=== PATIENT | female | born 2005 | race Caucasian/White ===

== ENCOUNTER 2025-03-24 09:47 | Outpatient (AMB) | payer MEDICAID, SELFPAY ==
--- NOTE | 2025-03-24 09:58 | OBCLNT_ITS ---
Vital Signs 03/24/25 10:40 Height 1.6 cm Height Method Stated Weight 59.194 kg Weight Measurement Method Standing Scale BMI 975924.1 BP 116/75 Blood Pressure Source Automatic Cuff Blood Pressure Location Left Upper Arm Position Sitting Respiration 18 Pulse 88 Pulse Source Monitor Temp 97.2 F Temp Source Oral Pulse Oximetry (%) 98 Oxygen Delivery Method Room Air Allergies/Home Meds Allergies & Medications Allergies No Known Allergies Allergy (Verified 03/24/25 10:42) Medication Reconciliation ferrous sulfate 325 mg (65 mg iron) tablet 325 mg PO BID #60 tabs 03/24/25 [Rx] Intake Visit Data Collection New Patient or Established: New Patient (never been to [facility]) Reason for Visit:: OBI FROM [place] NO RECORDS Seen by Clinical Staff ONLY (RN/MA): No Waiter/Waitress Tavern Required: No Do You Feel Safe at Home: Yes Authorities Contacted: N/A PCP or OBGYN visit in last 3 months: Yes Date of Last PCP or OBGYN visit: 03/24/25 Hx Now: Yes Are you currently on any form of Control: No Last menstrual period: 09/01/24 Pain Present Currently: No Pain Scale Used: Campos-Quiles/Numerical Pain scale:: 0 Smoking Status Smoking Status: Never smoker Questionnaires Covid-19 Vaccine Questionnaire Has patient been vacinated for Covid-19 Have you been vacinated for Covid-19: No PHQ-9 PHQ-2 Over the last 2 weeks, how often have you been bothered by any of the following problems? 1. Little interest or pleasure in doing things: not at all 2. Feeling down, depressed, or hopeless: not at all Total score: 0 PHQ-9 3. Trouble falling or staying asleep, or sleeping too much: Not at all 4. Feeling tired or having little energy: Not at all 5. Poor appetite or overeating: Not at all 6. Feeling bad about yourself - or that you are a failure or have let yourself or your family down: Not at all 7. Trouble concentrating on things, such as reading the newspaper or watching television: Not at all 8. Moving or speaking so slowly that other people could have noticed? - Or the opposite - being so fidgety or restless that you have been moving around a lot more than usual: not at all 9. Thoughts that you would be better off or of hurting yourself in some way: Not at all Total score: 0 If you checked off any problems, how difficult have these problems made it for you to do your work, take care of things at home, or get along with other people?: not difficult at all Source: Developed by Drs. Francisco Ignacio, Cheryl Winston, Blade Menon and colleagues, with an educational ximena from [employer]. Depression screen completed yes Social History Living Situation History Marital Status: Lives With: Family Housing: House Tobacco History Smoking Status: Never smoker Second Hand Smoke Exposure: No Alcohol History Alcohol Intake: Never Domestic Abuse History Do You Feel Safe at Home: Yes History of Present Illness HPI Narrative 19 yo for OBI. LMP 09/01/24. EDC: 06/09/25. sure date. Patient and father the baby are happy about the . Patient states reports that she has not had any problems so far with the . She had a couple visits in the [facility]. And she had 1 visit in [place]. Denies social habits. Denies surgery. Denies chronic illness. Patient had positive NuSwab for BV with this that was untreated. Her 1 hour was normal. TSH normal. Hepatitis C, hepatitis B, and HIV were all negative. She was a little bit anemic with a hematocrit of 34. And hemoglobin of 11. Her platelets were normal drug screen negative. Patient is B+, antibody screen negative, RPR nonreactive, rubella immune, and GC and Chlamydia were negative. Patient also had a cystic fibrosis screen that was done and that was negative as well. Reports movement. Denies leaking or bleeding. OB Initial Visit OB Flowsheet OB Flowsheet Initial Weight: Not Recorded Date -?-?-?-?-?-?-?-?-?-?-?-?- EGA Weight BP Alb Glu CTX Pres Fundal ht FHR Mov Dilation Station Effacement Hx Notes Visit Note 03/24/25 -?-?-?-?-?-?-?-?-?-?-?-?- 29w 1d 59.194 kg 116/75 absent unknown 29 145 active 19-year-old 1 para 0 for OBI. Patient had a couple visits in the [facility] and then wanted neck cycle. So she comes with labs today reports movement. Denies leaking, bleeding or contractions. Her last period September 01, 2024 and this gives due date June 09, 2025. Patient had NuSwab and the results positive for BV that was untreated and her hematocrit was 34. Schedule maternal- medicine ultrasound with Dr. Lind. I gave her prescription for iron to take twice a day. Flagyl 500 p.o. twice daily x 7.. And we gave a lab slip to do NIPT and spinal muscular atrophy. Discussed labor precautions and return in 3 weeks for OB check and Tdap Review of Systems Review of Systems Systems Reviewed: All systems reviewed, normal except as documented Exam General Limitations: no limitations General Appearance: alert, in no apparent distress, comfortable, cooperative, healthy appearing, well developed and well groomed Head Head exam: atraumatic, normocephalic and normal inspection ENT ENT exam: Present normal exam, normal oropharynx and mucous membranes moist Neck Neck exam: Present normal inspection, full ROM and trachea midline Chest Chest inspection: Present normal inspection and symmetric chest wall rise Resp Respiratory exam: Present normal lung sounds bilaterally Card Cardiovascular exam: Present regular rate, normal rhythm and normal heart sounds Abdominal Abdominal exam: Present soft and normal bowel sounds Psych Psychiatric exam: Present normal affect and normal mood Office Procedures OBC Clinic LOC & Office Proc's Nursing/Assessment Patient Status: Initial/New Patient OB Clinic Nursing Assessment: Medication Reconciliation, Update PMH in EMR and Vital Signs OB Clinic Coordination of Care: Education Complex Pt/Fam, Consent,records obtained, informed consent, Lab and Imaging orders, Results/Orders obtained and Staff clarify orders Special Needs: Heart tones New Patient Charge New Patient Point Assignment: [id number] New Patient Point Charge: LEADITE MAN Level 3 ([id number]) Assessment & Plan Diagnosis / Problem List (1) Encounter for supervision of high risk in third trimester, antepartum: Status: Acute Plan Flagyl 500 p.o. twice daily x 7. Start iron twice a day. Increase iron foods and increase fluids. Schedule ultrasound with Dr. Lind for routine of medicine. And NIPT and spinal muscular atrophy screen today. Return in 3 weeks for OB check and Tdap Additional Plan Follow Up: 3 Weeks (obc)
[2025-03-24 10:40] VITALS: BP 116/75; PULSE 88; RESP 18; TEMP 36.2; O2SAT 98; BMI 231145.1
== END 2025-03-24 11:14 | disposition home or self-care (01) ==
LOC: HODSOBC 09:47
PROVIDERS: Supervising Provider Advanced Practice Midwife; Visit Provider Advanced Practice Midwife
DX: O09.893 Supervision of other high risk pregnancies, third trimester (principal); O23.593 Infection of other part of genital tract in pregnancy, third trimester; N76.0 Acute vaginitis; B96.89 Other specified bacterial agents as the cause of diseases classified elsewhere; Z3A.29 29 weeks gestation of pregnancy; Z36.89 Encounter for other specified antenatal screening
CPT/HCPCS: 99203; G0463

== ENCOUNTER 2025-04-22 15:15 | Outpatient (AMB) | payer MEDICAID, SELFPAY ==
[2025-04-22 15:20] VITALS: BP 111/72; PULSE 83; RESP 18; TEMP 36.8; O2SAT 98; BMI 24.2
--- NOTE | 2025-04-22 15:20 | OBCLNT_ITS ---
Vital Signs 04/22/25 15:20 Height 1.6 m Height Method Stated Weight 61.915 kg Weight Measurement Method Standing Scale BMI 24.2 BP 111/72 Blood Pressure Source Automatic Cuff Blood Pressure Location Right Upper Arm Position Sitting Respiration 18 Pulse 83 Pulse Source Monitor Temp 98.2 F Temp Source Temporal Artery Scan Pulse Oximetry (%) 98 Oxygen Delivery Method Room Air Allergies/Home Meds Allergies & Medications Allergies No Known Allergies Allergy (Verified 04/22/25 15:21) Medication Reconciliation ferrous sulfate 325 mg (65 mg iron) tablet 325 mg PO BID #60 tabs 03/24/25 [Rx Confirmed 04/22/25] Intake Visit Data Collection New Patient or Established: Established Patient (seen at [facility] within 3 years) Reason for Visit:: OBC Seen by Clinical Staff ONLY (RN/MA): No Special Client Bus Driver Required: No Do You Feel Safe at Home: Yes Authorities Contacted: N/A PCP or OBGYN visit in last 3 months: Yes Date of Last PCP or OBGYN visit: 03/24/25 Hx Now: Yes Are you currently on any form of Control: No Pain Present Currently: No Pain Scale Used: Campos-Quiles/Numerical Pain scale:: 0 Smoking Status Smoking Status: Never smoker Immunizations Flu Vaccine in the Last 12 Months: Yes Flu Vaccine Exclusion Criteria: Already Received Questionnaires Covid-19 Vaccine Questionnaire Has patient been vacinated for Covid-19 Have you been vacinated for Covid-19: No PHQ-9 PHQ-2 Over the last 2 weeks, how often have you been bothered by any of the following problems? 1. Little interest or pleasure in doing things: not at all 2. Feeling down, depressed, or hopeless: not at all Total score: 0 PHQ-9 3. Trouble falling or staying asleep, or sleeping too much: Not at all 4. Feeling tired or having little energy: Not at all 5. Poor appetite or overeating: Not at all 6. Feeling bad about yourself - or that you are a failure or have let yourself or your family down: Not at all 7. Trouble concentrating on things, such as reading the newspaper or watching television: Not at all 8. Moving or speaking so slowly that other people could have noticed? - Or the opposite - being so fidgety or restless that you have been moving around a lot more than usual: not at all 9. Thoughts that you would be better off or of hurting yourself in some wa y: Not at all Total score: 0 If you checked off any problems, how difficult have these problems made it for you to do your work, take care of things at home, or get along with other people?: not difficult at all Source: Developed by Drs. Francisco Ignacio, Cheryl Winston, Blade Menon and colleagues, with an educational ximena from [employer]. Depression screen completed yes Social History Living Situation History Marital Status: Lives With: Family Housing: House Tobacco History Smoking Status: Never smoker Second Hand Smoke Exposure: No Alcohol History Alcohol Intake: Never Domestic Abuse History Do You Feel Safe at Home: Yes Care OB Visit Log OB Flowsheet Initial Weight: Not Recorded Date -?-?-?-?-?-?-?-?-?-?-?-?- EGA Weight BP Alb Glu CTX Pres Fundal ht FHR Mov Dilation Station Effacement Hx Notes Visit Note 03/24/25 -?-?-?-?-?-?-?-?-?-?-?-?- 29w 1d 59.194 kg 116/75 absent unknown 29 145 active 19-year-old 1 para 0 for OBI. Patient had a couple visits in the [facility] and then wanted neck cycle. So she comes with labs today reports movement. Denies leaking, bleeding or contractions. Her last period September 01, 2024 and this gives due date June 09, 2025. Patient had NuSwab and the results positive for BV that was untreated and her hematocrit was 34. Schedule maternal- medicine ultrasound with Dr. Lind. I gave her prescription for iron to take twice a day. Flagyl 500 p.o. twice daily x 7.. And we gave a lab slip to do NIPT and spinal muscular atrophy. Discussed labor precautions and return in 3 weeks for OB check and Tdap 04/22/25 -?-?-?-?-?-?-?-?-?-?-?-?- 33w 2d 61.915 kg 111/72 absent cephalic 32 145 active Reports movement. Denies leaking bleeding, contractions. No OB complaints Discussed labor precautions. Discussed kick count twice a day. Discussed dating. And return in 2 weeks OB check. And Tdap today Discussed labor prec autions. Discussed kick count twice a day. Discussed dating. And return in 2 weeks OB check. EDUARDO Calculator Estimated Delivery Date Method Current WG Current Estimate 06/08/25 LMP (Certain) 33w 2d Other Estimates 06/08/25 Ultrasound #1 33w 2d Notes Visit Date: 04/22/25 Last Updated by: Kiya Brito CNM NIPT-/girl/sma- Visit Date: 03/24/25 Last Updated by: Kiya Brito CNM OB panel: nuswab: +BV, GC/CT-, UT-, UA-, CF-, 1 hr gtt-, , B+.ABS- rpr;;,nr, rub imm, HBSAG-, hiv-, HC. Office Procedures OBC Clinic LOC & Office Proc's Nursing/Assessment Patient Status: Established Patient OB Clinic Nursing Assessment: Medication Reconciliation, Update PMH in EMR and Vital Signs OB Clinic Coordination of Care: Complex Care and Chronic Disease 1-5, Education Complex Pt/Fam, Consent,records obtained, informed consent, Results/Orders obtained and Staff clarify orders Special Needs: Heart tones Established Patient Charge Established Patient Point Assignment: 125 Established Patient Point Charge: EP Level 4 (120-155) Immunizations diphth,pertus(acell),tetanus 2.5 Lf unit-8 mcg-5 Lf/0.5mL IM syringe Performing Provider: Kiya Brito CNM Performing Location: [facility] Administered by: Rebeka Monahan MA on 04/22/25 15:54 Dose Route Admin Location Dispensed Lot Number Expiration Date Pack age [facility] Brand Representative 0.5 mL IM Right Deltoid 0.5 mL [id number] 12/07/27 [id number] [place] Purification VIS Given Date VIS Provided VIS Publication Date 04/22/25 Single Vaccine 24 Eligibility Eligibility Date Funding Source Public Non-[facility] Assessment & Plan Diagnosis / Problem List (1) Encounter for supervision of high risk in third trimester, antepartum: Status: Acute Plan Discussed Tdap with patient. She declined today. Discussed labor precautions. Kick count twice a day. Reviewed dates and lab results. And return in 2 weeks OB check Additional Plan Follow Up: 2 Weeks (obc)
== END 2025-04-22 15:46 | disposition home or self-care (01) ==
PROVIDERS: Supervising Provider Advanced Practice Midwife; Visit Provider Advanced Practice Midwife
DX: O09.93 Supervision of high risk pregnancy, unspecified, third trimester (principal); Z3A.33 33 weeks gestation of pregnancy; Z23 Encounter for immunization
CPT/HCPCS: 90471; 90715; 99214; G0463

== ENCOUNTER 2025-05-12 14:31 | Outpatient (AMB) | payer MEDICAID, SELFPAY ==
[2025-05-12 14:40] VITALS: BP 121/78; PULSE 94; RESP 18; TEMP 36.8; O2SAT 98; BMI 25.3
--- NOTE | 2025-05-12 14:40 | OBCLNT_ITS ---
Vital Signs 05/12/25 14:40 Height 1.6 m Height Method Stated Weight 64.864 kg Weight Measurement Method Standing Scale BMI 25.3 BP 121/78 Blood Pressure Source Automatic Cuff Blood Pressure Location Left Upper Arm Position Sitting Respiration 18 Pulse 94 Pulse Source Monitor Temp 98.2 F Temp Source Oral Pulse Oximetry (%) 98 Oxygen Delivery Method Room Air Allergies/Home Meds Allergies & Medications Allergies No Known Allergies Allergy (Verified 05/12/25 14:40) Medication Reconciliation ferrous sulfate 325 mg (65 mg iron) tablet 325 mg PO BID #60 tabs 03/24/25 [Rx Confirmed 05/12/25] Immunizations Immunizations Flu Vaccine in the Last 12 Months: No Flu Vaccine Exclusion Criteria: No Exclusion Criteria Care OB Visit Log OB Flowsheet Initial Weight: Not Recorded Date -?-?-?-?-?-?-?-?-?-?-?-?- EGA Weight BP Alb Glu CTX Pres Fundal ht FHR Mov Dilation Station Effacement Hx Notes Visit Note 03/24/25 -?-?-?-?-?--?-?-?-?-?-?-?- 29w 1d 59.194 kg 116/75 absent unknown 29 145 active 19-year-old 1 para 0 for OBI. Patient had a couple visits in the [place] [facility] and then wanted neck cycle. So she comes with labs today reports movement. Denies leaking, bleeding or contractions. Her last period September 01, 2024 and this gives due date June 09, 2025. Patient had NuSwab and the results positive for BV that was untreated and her hematocrit was 34. Schedule maternal- medicine ultrasound with Dr. Lind. I gave her prescription for iron to take twice a day. Flagyl 500 p.o. twice daily x 7.. And we gave a lab slip to do NIPT and spinal muscular atrophy. Discussed labor precautions and return in 3 weeks for OB check and Tdap 04/22/25 -?-?-?-?-?-?-?-?-?-?-?-?- 33w 2d 61.915 kg 111/72 absent cephalic 32 145 active Reports movement. Denies leaking bleeding, contractions. No OB complaints Discussed labor precautions. Discussed kick count twice a day. Discussed dating. And return in 2 weeks OB check. And Tdap today Discussed labor prec autions. Discussed kick count twice a day. Discussed dating. And return in 2 weeks OB check. 05/12/25 -?-?-?-?-?-?-?-?-?-?-?-?- 36w 1d 64.864 kg 121/78 absent cephalic 35 145 active Reports good movement. Denies leaking or bleeding, occasional contraction and pressure. GBS today. Discussed labor precautions. Kick count twice a day. We talked about rupture membranes. Return in a week OB check EDUARDO Calculator Estimated Delivery Date Method Current WG Current Estimate 06/08/25 LMP (Certain) 36w 1d Other Estimates 06/08/25 Ultrasound #1 36w 1d 06/08/25 Manual 36w 1d final eduardo 06/08 Notes Visit Date: 04/22/25 Last Updated by: Kiya Brito CNM NIPT-/girl/sma- Visit Date: 03/24/25 Last Updated by: Kiya Brito CNM OB panel: nuswab: +BV, GC/CT-, UT-, UA-, CF-, 1 hr gtt-, , B+.ABS- rpr;;,nr, rub imm, HBSAG-, hiv-, HC. Office Procedures OBC Clinic LOC & Office Proc's Nursing/Assessment Patient Status: Established Patient OB Clinic Nursing Assessment: Medication Reconciliation, Update PMH in EMR and Vital Signs OB Clinic Coordination of Care: Consent,records obtained, informed consent, Education Simp Pt/Fam, Lab and Imaging orders, Results/Orders obtained and Staff clarify orders Special Needs: Heart tones Miscellaneous Interventions: Pelvic Comp w/OB cult Established Patient Charge Established Patient Point Assignment: 125 Established Patient Point Charge: EP Level 4 (120-155) Assessment & Plan Diagnosis / Problem List (1) Encounter for supervision of high risk in third trimester, antepartum: Status: Acute Plan Discussed labor precautions. Kick count twice a day. Discussed signs and symptoms of labor and danger signs symptoms and ER precautions. GBS today Additional Plan Follow Up: 1 Week (obc)
== END 2025-05-12 15:08 | disposition home or self-care (01) ==
LOC: HODSOBC 14:31
PROVIDERS: Supervising Provider Advanced Practice Midwife; Visit Provider Advanced Practice Midwife
DX: O09.93 Supervision of high risk pregnancy, unspecified, third trimester (principal); Z3A.36 36 weeks gestation of pregnancy; Z36.85 Encounter for antenatal screening for Streptococcus B
CPT/HCPCS: 99214; G0463

== ENCOUNTER 2025-05-21 13:21 | Outpatient (AMB) | payer MEDICAID, SELFPAY ==
--- NOTE | 2025-05-21 13:29 | OBCLNT_ITS ---
Vital Signs 05/21/25 13:34 Height 1.6 m Height Method Stated Weight 64.92 kg Weight Measurement Method Standing Scale BMI 25.3 BP 131/82 H Blood Pressure Source Automatic Cuff Blood Pressure Location Left Upper Arm Position Sitting Respiration 18 Pulse 100 Pulse Source Monitor Temp 97.2 F Temp Source Oral Pulse Oximetry (%) 98 Oxygen Delivery Method Room Air Allergies/Home Meds Allergies & Medications Allergies No Known Allergies Allergy (Verified 05/21/25 13:29) Medication Reconciliation ferrous sulfate 325 mg (65 mg iron) tablet 325 mg PO BID #60 tabs 03/24/25 [Rx Confirmed 05/21/25] Immunizations Immunizations Flu Vaccine in the Last 12 Months: No Flu Vaccine Exclusion Criteria: No Exclusion Criteria Care OB Visit Log OB Flowsheet Initial Weight: Not Recorded Date -?-?-?-?-?-?-?-?-?-?-?-?- EGA Weight BP Alb Glu CTX Pres Fundal ht FHR Mov Dilation Station Effacement Hx Notes Visit Note 03/24/25 -?-?-?--?-?-?-?-?-?-?-?-?- 29w 1d 59.194 kg 116/75 absent unknown 29 145 active 19-year-old 1 para 0 for OBI. Patient had a couple visits in the [place] clinic and then wanted neck cycle. So she comes with labs today reports movement. Denies leaking, bleeding or contractions. Her last period September 01, 2024 and this gives due date June 09, 2025. Patient had NuSwab and the results positive for BV that was untreated and her hematocrit was 34. Schedule maternal- medicine ultrasound with Dr. Lind. I gave her prescription for iron to take twice a day. Flagyl 500 p.o. twice daily x 7.. And we gave a lab slip to do NIPT and spinal muscular atrophy. Discussed labor precautions and return in 3 weeks for OB check and Tdap 04/22/25 -?-?-?-?-?-?-?-?-?-?-?-?- 33w 2d 61.915 kg 111/72 absent cephalic 32 145 active Reports movement. Denies leaking bleeding, contractions. No OB complaints Discussed labor precautions. Discussed kick count twice a day. Discussed dating. And return in 2 weeks OB check. And Tdap today Discussed labor prec autions. Discussed kick count twice a day. Discussed dating. And return in 2 weeks OB check. 05/12/25 -?-?-?-?-?-?-?-?-?-?-?-?- 36w 1d 64.864 kg 121/78 absent cephalic 35 145 active Reports good movement. Denies leaking or bleeding, occasional contraction and pressure. GBS today. Discussed labor precautions. Kick count twice a day. We talked about rupture membranes. Return in a week OB check 05/21/25 -?-?-?-?-?-?-?-?-?-?-?-?- 37w 3d 64.92 kg 131/82 absent cephalic 37 150 active Increased contractions. Denies leaking or bleeding. Increased pressure. Fetus active Discussed labor precautions. Kick count. Return in a week OB check EDUARDO Calculator Estimated Delivery Date Method Current WG Current Estimate 06/08/25 LMP (Certain) 37w 3d Other Estimates 06/08/25 Ultrasound #1 37w 3d 06/08/25 Manual 37w 3d final eduardo 06/08 Notes Visit Date: 05/21/25 Last Updated by: Kiya Brito CNM GBS- 05/21/25 Visit Date: 04/22/25 Last Updated by: Kiya Brito CNM NIPT-/girl/sma- Visit Date: 03/24/25 Last Updated by: Kiya Brito CNM OB panel: nuswab: +BV, GC/CT-, UT-, UA-, CF-, 1 hr gtt-, , B+.ABS- rpr;;,nr, rub imm, HBSAG-, hiv-, HC. Office Procedures OBC Clinic LOC & Office Proc's Nursing/Assessment Patient Status: Established Patient OB Clinic Nursing Assessment: Medication Reconciliation, Update PMH in EMR and Vital Signs OB Clinic Coordination of Care: Consent,records obtained, informed consent, Education Simp Pt/Fam, Lab and Imaging orders, Results/Orders obtained and Staff clarify orders Special Needs: Heart tones Established Patient Charge Established Patient Point Assignment: 110 Established Patient Point Charge: EP Level 3 (80-115) Assessment & Plan Diagnosis / Problem List (1) Encounter for supervision of high risk in third trimester, antepartum: Status: Acute Plan Kick count twice a day. Discussed labor precautions. Discussed comfort measures for early labor. Return in a week OB check Additional Plan Follow Up: 1 Week (obc)
[2025-05-21 13:34] VITALS: BP 131/82; PULSE 100; RESP 18; TEMP 36.2; O2SAT 98; BMI 25.3
== END 2025-05-21 14:21 | disposition home or self-care (01) ==
LOC: HODSOBC 13:21
PROVIDERS: Supervising Provider Advanced Practice Midwife; Visit Provider Advanced Practice Midwife
DX: O09.93 Supervision of high risk pregnancy, unspecified, third trimester (principal); Z3A.37 37 weeks gestation of pregnancy
CPT/HCPCS: 99213; G0463

== ENCOUNTER 2025-05-30 12:57 | Outpatient (AMB) | payer MEDICAID, SELFPAY ==
[2025-05-30 13:21] VITALS: BP 119/78; PULSE 87; RESP 18; TEMP 36.8; O2SAT 98; BMI 25.5
--- NOTE | 2025-05-30 13:21 | OBCLNT_ITS ---
Vital Signs 05/30/25 13:21 Height 1.6 m Height Method Stated Weight 65.487 kg Weight Measurement Method Standing Scale BMI 25.5 BP 119/78 Blood Pressure Source Automatic Cuff Blood Pressure Location Right Upper Arm Position Sitting Respiration 18 Pulse 87 Pulse Source Monitor Temp 98.3 F Temp Source Temporal Artery Scan Pulse Oximetry (%) 98 Oxygen Delivery Method Room Air Allergies/Home Meds Allergies & Medications Allergies No Known Allergies Allergy (Verified 05/30/25 13:22) Medication Reconciliation ferrous sulfate 325 mg (65 mg iron) tablet 325 mg PO BID #60 tabs 03/24/25 [Rx Confirmed 05/30/25] Immunizations Immunizations Flu Vaccine in the Last 12 Months: Yes Flu Vaccine Exclusion Criteria: Already Received Care OB Visit Log OB Flowsheet Initial Weight: Not Recorded Date -?-?-?-?-?-?-?-?-?-?-?-?- EGA Weight BP Alb Glu CTX Pres Fundal ht FHR Mov Dilation Station Effacement Hx Notes Visit Note 03/24/25 -?-?-?-?-?-?-?-?-?-?-?-?- 29w 1d 59.194 kg 116/75 absent unknown 29 145 active 19-year-old 1 para 0 for OBI. Patient had a couple visits in the [facility] and then wanted neck cycle. So she comes with labs today reports movement. Denies leaking, bleeding or contractions. Her last period September 01, 2024 and this gives due date June 09, 2025. Patient had NuSwab and the results positive for BV that was untreated and her hematocrit was 34. Schedule maternal- medicine ultrasound with Dr. Lind. I gave her prescription for iron to take twice a day. Flagyl 500 p.o. twice daily x 7.. And we gave a lab slip to do NIPT and spinal muscular atrophy. Discussed labor precautions and return in 3 weeks for OB check and Tdap 04/22/25 -?-?-?-?-?-?-?-?-?-?-?-?- 33w 2d 61.915 kg 111/72 absent cephalic 32 145 active Reports movement. Denies leaking bleeding, contractions. No OB complaints Discussed labor precautions. Discussed kick count twice a day. Discussed dating. And return in 2 weeks OB check. And Tdap today Discussed labor prec autions. Discussed kick count twice a day. Discussed dating. And return in 2 weeks OB check. 05/12/25 -?-?-?-?-?-?-?-?-?-?-?-?- 36w 1d 64.864 kg 121/78 absent cephalic 35 145 active Reports good movement. Denies leaking or bleeding, occasional contraction and pressure. GBS today. Discussed labor precautions. Kick count twice a day. We talked about rupture membranes. Return in a week OB check 05/21/25 -?-?-?-?-?-?-?-?-?-?-?-?- 37w 3d 64.92 kg 131/82 absent cephalic 37 150 active Increased contractions. Denies leaking or bleeding. Increased pressure. Fetus active Discussed labor precautions. Kick count. Return in a week OB check 05/30/25 -?-?-?-?-?-?-?-?-?-?-?-?- 38w 5d 65.487 kg 119/78 occasional cephalic 37 145 active Reports movement. Denies leaking, bleeding. And increased contractions noted Reinforced labor precautions. We also talked about a kick count twice a day and parameters. Discussed danger signs symptoms and ER precautions return in a week OB check EDUARDO Calculator Estimated Delivery Date Method Current WG Current Estimate 06/08/25 LMP (Certain) 38w 5d Other Estimates 06/08/25 Ultrasound #1 38w 5d 06/08/25 Manual 38w 5d final eduardo 06/08 Notes Visit Date: 05/21/25 Last Updated by: Kiya Brito CNM GBS- 05/21/25 Visit Date: 04/22/25 Last Updated by: Kiya Brito CNM NIPT-/girl/sma- Visit Date: 03/24/25 Last Updated by: Kiya Brito CNM OB panel: nuswab: +BV, GC/CT-, UT-, UA-, CF-, 1 hr gtt-, , B+.ABS- rpr;;,nr, rub imm, HBSAG-, hiv-, HC. Office Procedures OB Clinic LOC & Office Proc's Nursing/Assessment Patient Status: Established Patient OB Clinic Nursing Assessment: Medication Reconciliation, Update PMH in EMR and Vital Signs OB Clinic Coordination of Care: Complex Care and Chronic Disease 1-5, Education Complex Pt/Fam, Consent,records obtained, informed consent, Lab and Imaging orders, Results/Orders obtained and Staff clarify orders Special Needs: Heart tones Established Patient Charge Established Patient Point Assignment: 140 Established Patient Point Charge: EP Level 4 (120-155) Assessment & Plan Diagnosis / Problem List (1) Encounter for supervision of high risk in third trimester, antepartum: Status: Acute Plan Discussed labor precautions. Kick count twice a day. ER precautions enforced and danger signs symptoms. Return in week OB check Additional Plan Follow Up: 1 Week (obc)
== END 2025-05-30 13:31 | disposition home or self-care (01) ==
LOC: HODSOBC 12:57
PROVIDERS: Supervising Provider Advanced Practice Midwife; Visit Provider Advanced Practice Midwife
DX: O09.893 Supervision of other high risk pregnancies, third trimester (principal); O47.1 False labor at or after 37 completed weeks of gestation; Z3A.38 38 weeks gestation of pregnancy
CPT/HCPCS: 99214; G0463

== ENCOUNTER 2025-06-01 15:01 | Inpatient (IN) | payer MEDICAID, SELFPAY ==
[2025-06-01] VITALS (34 sets, daily range): BP systolic 109–133; BP diastolic 55–73; PULSE 77–101; RESP 16–98; TEMP 36.7–37.2; O2SAT 93–100; BMI 27.3; BMI 26.5
--- NOTE | 2025-06-01 13:26 | XR_ITS ---
Examination: Biophysical profile, ultrasound Date and time of exam: June 01 2025, 1337 hours INDICATIONS: Labor evaluation, decreased movement today Technique: Multiple transabdominal sonographic images of the pelvis abdomen obtained. Attention is directed to the breathing movement, gross body movement, amniotic fluid volume and tone. Findings: Amniotic fluid index 5.8 cm Total biophysical profile is 8 of 8. breathing movement is 2. Gross body movement is 2. tone is 2. Qualitative amniotic fluid volume is 2 Impression: Biophysical profile is 8 of 8.
--- NOTE | 2025-06-01 13:26 | XR_ITS ---
Examination: Complete OB ultrasound greater than 14 weeks Date and time of exam: June 01, 2025, 1346 hours INDICATIONS: Labor evaluation today, deceleration on testing today Findings: Viable intrauterine single fetus with single amniotic sac presentation cephalic Cardiac motion 152 bpm Placenta anterior grade 2 Umbilical cord insertion 3 vessel seen Amniotic fluid index 5.9 cm Cervix 3.2 cm Right ovary 4.9 cm arterial flow Left ovary 5.0 cm arterial flow. Composite estimated gestational age based on BPD, head circumference, abdominal circumference, femur length is 37 weeks 2 days Estimated weight 3123 g. Survey of intracranial anatomy, spinal anatomy, abdominal anatomy, four-chamber heart performed with no abnormalities identified. Impression: Viable intrauterine gestation cephalic presentation Estimated gestational age 37 weeks 2 days Bilateral ovaries are mildly prominent, suggest follow-up.
[2025-06-01 13:47] LABS: ROM Kit Lot # 58106258
[2025-06-01 13:48] LABS: ROM Kit Exp Date# 04/11/28; ROM Swab Mixed By: LAUTH; Swb Mxed in Solvent 1 min? Yes
[2025-06-01 13:54] LABS: Rupture of Fetal Membranes Negative (Negative)
[2025-06-01] MEDS: RINGERS LACTATED 1000 ML 1,000 ML 100 ML IV ×2 (15:15→16:44)
[2025-06-01 16:50] LABS: Basophils # (Auto) 0.0 Thou/mm3 (0.0-0.2); Basophils % (Auto) 0 % (0-2.5); Eosinophils # (Auto) 0.0 Thou/mm3 (0.0-0.5); Eosinophils % (Auto) 0 % (0-10); Hematocrit 34.5 % (36.0-46.0); Hemoglobin 11.9 g/dL (12.0-16.0); Immature Granulocytes Auto 0.09 Thou/mm3 (0.00-0.00); Lymphocytes # (Auto) 1.5 Thou/mm3 (1.0-4.8); Lymphocytes % (Auto) 16 % (10-50); Mean Corpuscular HGB Conc 34.5 g/dl (31.0-37.0); Mean Corpuscular Hemoglobin 28.5 pg (25.0-35.0); Mean Corpuscular Volume 83 fL (80-100); Monocytes # (Auto) 0.7 Thou/mm3 (0.0-0.8); Monocytes % (Auto) 7 % (0-12); Neutrophils # (Auto) 7.1 Thou/mm3 (1.8-7.7); Neutrophils % (Auto) 76 % (37-80); Nucleated Red Blood Cell # 0.00 Thou/mm3 (0.00-0.00); Nucleated Red Blood Cell % 0 /100 WBC (0); Platelet Count 233 Thou/mm3 (140-440); RDW Standard Deviation 40.1 fL (36.4-46.3); Red Blood Count 4.18 Miln/mm3 (4.00-5.20); White Blood Count 9.4 Thou/mm3 (4.5-11.0)
[2025-06-01 17:09] LABS: Syphilis Nonreactive (Nonreactive)
[2025-06-01 17:27] LABS: Amphetamine/Metham Scrn,Ur OB Negative (Negative); Benzoylecgonine Screen, Ur OB Negative (Negative); Opiate Screen,Urine OB Negative (Negative); THC Screen,Urine OB Negative (Negative)
[2025-06-02] VITALS (45 sets, daily range): BP systolic 106–148; BP diastolic 55–77; PULSE 72–115; RESP 16–18; TEMP 36.6–37.1; O2SAT 93–100
[2025-06-02] MEDS: fentaNYL CIT INJ 50 mCg/ML AMP 2ML 100 MCG IVP ×2 (01:25→21:56)
--- NOTE | 2025-06-02 08:49 | PD.LDHP ---
Documentation for date of: 06/02/25 OB Labor/Induct. HPI History of Present Illness Chief complaint: decreased FM, oligo, for induction : 1 Para: 0 Term pregnancies: 0 pregnancies: 0 Living children: 0 History of Abortions: Spontaneous and Elective: 0 History of Vaginal deliveries: 0 History of sections: No History of : No Date of last menstrual period: 09/01/24 EDUARDO: 06/08/25 Gestational Age (weeks): 39 Gestational Age (days): 1 Gestational age based on last menstrual period: 39 History of present illness: 19-year-old 1 para 0 admit to labor and delivery for induction of labor. Patient initially came to the unit because of decreased movement. On sono CINDI was 5.9. Patient was kept for induction of labor. Last. September 01, 2024. Estimated due date June 09, 2025 and that was based on ultrasound. Patient was followed at initially at [facility]. First visit at [facility] OB was at 29 weeks. 1 hour was normal. Patient is B+, antibody screen negative, RPR nonreactive, rubella immune, hepatitis B negative, hep C negative, HIV negative, GC and Chlamydia were negative. GBS negative. Denies social habits. Denies surgery. Denies chronic illness. Denies leaking or bleeding or contractions. Carrier screen and NIPT were negative History of Present Dating criteria: LMP confirmed by 2nd trimester US Adequate Care: Yes Ultrasounds: normal mid trimester US Obstetrical complications: none Medical complications: none Labs Labs: Positive: Rubella Titre, Negative: RPR, Hepatitis B, HIV, Chlamydia, Gonorrhea and Group Beta Strep and Unknown: Herpes Type 1 and Herpes Type 2 Review of Systems Review of Systems Systems Reviewed: All systems reviewed, normal except as documented Past Medical History Surgical History SURGICAL: Negative Section Meds Home Medications and Allergies Home Medications ?Medication ?Instructions ?Recorded ?Confirmed ?Type vitamins no.102-iron 90 1 cap PO QDAY 06/01/25 06/01/25 History mg-folate 1 mg-dha 200 mg capsule Allergies Allergy/AdvReac Type Severity Reaction Status Date / Time No Known Allergies Allergy Verified 06/01/25 13:59 OB Exam Physical Exam Vital signs: Temp Pulse Resp BP Pulse Ox 98.1 F 80 16 106/55 L 100 06/01/25 23:39 12/15/25 07:41 06/01/25 23:39 06/02/25 07:41 06/01/25 15:17 Narrative: Alert and oriented. Normal heart rate and rhythm. Lungs clear no wheezes. Gravid abdomen. Gynecoid pelvis. Estimated weight was 3100 g. Exam on admission was 50%, 1, -3. Vertex. Bag water intact. heart rate was category 1 with accelerations and moderate variability occasional contraction the patient does not feel. CINDI was 5.9 Detailed Labor and Delivery Exam Dilation (cm): 1 Effacement (%): 50 Cervix position: mid station: -3 Consistency: soft Presentation: Vertex Cervical ripeness score: 4 Membranes: intact Baseline heart rate: 135 monitor accelerations: 15x15 monitor decelerations: None roasterman variability: Moderate (11-25) Contraction frequency (min): occ Contraction duration (sec): 40 Tachysystole: No Contraction intensity: Mild OB Results Labs 06/01/25 15:11 Labs: Short CBC 06/01/25 Range/Units 15:11 WBC 9.4 (4.5-11.0) Thou/mm3 Hgb 11.9 L (12.0-16.0) g/dL Hct 34.5 L (36.0-46.0) % Plt Count 233 (140-440) Thou/mm3 OB Assessment & Plan Assessment and Plan (1) Normal labor and delivery: Status: Acute Additional Plan Induction method: per misoprostol protocol Plan: induction, anticipate NVD and consult MD judge
[2025-06-02] MEDS: RINGERS LACTATED 1000 ML 1,000 ML 100 ML IV (20:53)
[2025-06-02] MEDS: OXYTOCIN in NS 30 units 30 UNIT/500 ML BAG IV (21:05)
[2025-06-03] VITALS (69 sets, daily range): BP systolic 105–155; BP diastolic 57–80; PULSE 64–161; RESP 14–18; TEMP 36.4–37.3; O2SAT 80–99
[2025-06-03] MEDS: MINERAL OIL 30 ML UDC TOP (01:03)
[2025-06-03] MEDS: OXYTOCIN INJ 10 UNIT/ML VIAL IM (02:21)
[2025-06-03] MEDS: OXYTOCIN in NS 20 units 20 UNIT/1,000 ML BAG 125 UNIT IV (02:24)
[2025-06-03] MEDS: TRANEXAMIC ACID 1,000 MG IVPB 1,000 MG/100 ML BAG 200 MG IV (02:29)
[2025-06-03] MEDS: METHYLERGONOVINE INJ 0.2 MG/ML VIAL IM (02:37)
--- NOTE | 2025-06-03 03:05 | OBDSUM_ITS ---
Data (Smiley) Data Hx Section: No : 1 Term: 0 : 0 Livin Abortions: Spontaneous & Theraputic: 0 Delivery Data (Smiley) Labor Data Initiation of labor: Induction Induction/Augmentation Agent: Cytotec-PO, Cervidil and Pitocin ROM date: 06/02/25 ROM time: 21:25 Amniotic membrane rupture type: Spontaneous Amniotic fluid description: Clear Delivery Data EDC: 06/09/25 EDC calculated by:: LMP/early US confirmation Date of arrival to unit: 06/01/25 Onset of labor date: 06/02/25 Onset of labor time: 13: delivery date: 06/03/25 delivery time: 02: Gestational age (weeks): 39 Gestational age (days): 1 Placenta delivery date: 06/03/25 Placenta delivery time: 02: Delivered by: Jamil Velasquez Delivery nurse: Delfina Gonzalez RN [employer] Secretary at delivery: No Other staff at delivery: Janel THOMASpattern assembler Method Delivery method: Normal Vaginal Delivery Presentation: Vertex position: OA Anesthesia Type Anesthesia Type: Epidural Delivery Room Medications Delivery room medications: Methergine 0.2 mg IM, Pitocin 10 u IM, Pitocin 20 u IV, Cytotec 800 NM and other (txa) Placenta Placenta delivery description: Spontaneous (inspected, intact) Cord blood sent to lab: Yes cord blood collection: Cord Blood Type Episiotomy Episiotomy description: None Lacerations #1: Vaginal: 1st degree (bilateral) Perineal repair Sutures used for repair: 3.0 Vicryl EBL Estimated blood loss (ml): 400 Umbilical Cord cord description: 3 Vessels Additional Procedures posterior arm/Left arm Bristow Data (Smiley) Data order: 1 Bristow's gender: Female
[2025-06-03] MEDS: Ampicillin Inj 2,000 MG in SODIUM CHLORIDE 0.9% (POP) 100 ML 100 MG IV ×4 (03:31→23:49)
[2025-06-03] MEDS: IBUPROFEN TAB 400 MG TABLET 800 MG PO ×2 (04:19→16:13)
[2025-06-03 11:28] LABS: Basophils # (Auto) 0.0 Thou/mm3 (0.0-0.2); Basophils % (Auto) 0 % (0-2.5); Eosinophils # (Auto) 0.0 Thou/mm3 (0.0-0.5); Eosinophils % (Auto) 0 % (0-10); Hematocrit 31.3 % (36.0-46.0); Hemoglobin 11.3 g/dL (12.0-16.0); Immature Granulocytes Auto 0.08 Thou/mm3 (0.00-0.00); Lymphocytes # (Auto) 1.2 Thou/mm3 (1.0-4.8); Lymphocytes % (Auto) 9 % (10-50); Mean Corpuscular HGB Conc 36.1 g/dl (31.0-37.0); Mean Corpuscular Hemoglobin 29.7 pg (25.0-35.0); Mean Corpuscular Volume 82 fL (80-100); Monocytes # (Auto) 0.9 Thou/mm3 (0.0-0.8); Monocytes % (Auto) 6 % (0-12); Neutrophils # (Auto) 11.4 Thou/mm3 (1.8-7.7); Neutrophils % (Auto) 84 % (37-80); Nucleated Red Blood Cell # 0.00 Thou/mm3 (0.00-0.00); Nucleated Red Blood Cell % 0 /100 WBC (0); Platelet Count 216 Thou/mm3 (140-440); RDW Standard Deviation 39.2 fL (36.4-46.3); Red Blood Count 3.81 Miln/mm3 (4.00-5.20); White Blood Count 13.6 Thou/mm3 (4.5-11.0)
--- NOTE | 2025-06-03 15:34 | PC.SS ---
ATG ARCHITECT conducted bedside contact with the patient to address nursing referral indicating patient was late to care at 22 weeks.? ATG ARCHITECT introduced self and role.? At bedside with patient was DALJIT, Tom Montano.? ATG ARCHITECT utilized translation services to assist with discussion.? Patient gave permission for FOB to be present during discussion.? ATG ARCHITECT reviewed basis of referral.? Patient confirmed late to care (22 weeks) due to the patient being in [place] during the first 6 months of .? Patient stated receiving OB services in [place].? Upon return to [place] patient obtained OB services from [facility]ya rBito.? Patient reports consistency with OB appointments upon return to [place].? , Antonietta; is the patient?s first child.? Infant delivered naturally. Patient is receiving WIC.? Patient not receiving SNAP or TANF.? Patient denies history of alcohol/drug abuse.? Patient denies CWS intervention.? Patient denies episodes of domestic violence.? Patient denies possessing a history of mental health, reports no current possession of depression or anxiety.? Patient plans on breast feeding the .? Patient has access to appropriate supplies and equipment; to include a car seat.? FOB will provide transportation upon discharge.? Patient describes possessing support system consisting of parents and extended family.? ATG ARCHITECT provided the patient with community resources to include Parenting Network and Warm Line.? No further intervention required at this time, school social worker will be available to address any further concerns.? ATG ARCHITECT updated bedside nurse.?
--- NOTE | 2025-06-04 00:31 | PC.NURSE ---
IV infiltrated and removed.
[2025-06-04 08:00] VITALS: BP 101/60; PULSE 84; RESP 18; TEMP 36.7; O2SAT 98
--- NOTE | 2025-06-04 08:21 | PD.LDPPPRG ---
Subjective Subjective Interval history: Complains of cramps. Denies any perineal pain at laceration site. Patient is bonding and voiding. No dizziness. Exam Vital Signs Temp Pulse Resp BP Pulse Ox O2 Del Method 98.0 F 87 17 105/67 97 Room Air 06/03/25 23:55 06/03/25 23:55 06/03/25 23:55 06/03/25 23:55 06/03/25 23:55 06/03/25 23:55 Narrative Exam Vital signs are stable afebrile. Breasts are soft. Fundus firm below the umbilicus. Perineum is intact no swelling. Small lochia. No signs or symptoms of infection. Uterus is well involuted Objective Labs 06/03/25 11:10 Labs: Laboratory Results - last 24 hr 06/03/25 11:10 WBC 13.6 H D RBC 3.81 L Hgb 11.3 L Hct 31.3 L MCV 82 MCH 29.7 MCHC 36.1 RDW Std Deviation 39.2 Plt Count 216 Neut % (Auto) 84 H Lymph % (Auto) 9 L Oliver % (Auto) 6 Eos % (Auto) 0 Baso % (Auto) 0 Neut # (Auto) 11.4 H Lymph # (Auto) 1.2 Oliver # (Auto) 0.9 H Eos # (Auto) 0.0 Baso # (Auto) 0.0 Immature Gran # (Auto) 0.08 H Absolute Nucleated RBC 0.00 Immature Gran % 1 H Nucleated RBC % 0 Assessment & Plan Problem List (1) Normal labor and delivery: Status: Acute Assessment Comment Assessment comment: 24 hr pp Plan Comment Plan Comment: Discharge home with baby. Continue vitamins and iron. Tylenol or ibuprofen for pain. Discussed danger signs symptoms and ER precautions discussed signs and symptoms of infection and return to OB clinic in 3 weeks for visit Time Spent With Patient Time: Total time spent is greater than 50% in coordination of care (as documented) at patient's floor/unit and/or counseling patient:
--- NOTE | 2025-06-04 08:24 | PD.LDDS ---
DS: Providers Provider Date of admission: 06/01/25 15:01 Primary care physician: Physician No Primary/Family Admitting Provider: Kiya Brito CNM Attending Provider on Admission: Kiya Brito CNM Consults: 06/03/25 03:58 Referral Routine Comment: Attending Provider on DC: Kiya Brito CNM Discharging Provider: Kiya Brito CNM DS: Diagnosis Problem List Completed Was Problem List Reviewed/Reconciled?: Yes Summary/Hosp Course Brief History: 19-year-old 1 para 0 admit to labor and delivery for induction of labor. Patient initially came to the unit because of decreased movement. On sono CINDI was 5.9. Patient was kept for induction of labor. Last. September 01, 2024. Estimated due date June 09, 2025 and that was based on ultrasound. Patient was followed at [facility] at [facility]. First visit at [facility] OB was at 29 weeks. 1 hour was normal. Patient is B+, antibody screen negative, RPR nonreactive, rubella immune, hepatitis B negative, hep C negative, HIV negative, GC and Chlamydia were negative. GBS negative. Denies social habits. Denies surgery. Denies chronic illness. Denies leaking or bleeding or contractions. Carrier screen and NIPT were negative Peripartum Data Delivery Method: Normal Vaginal Delivery Episiotomy Description: None Laceration Description: yes (vaginal) complications: none Time Spent with Patient Time attestation: Total time spent providing and/or coordinating discharge services: Exam Vital Signs Temp Pulse Resp BP Pulse Ox O2 Del Method 98.0 F 87 17 105/67 97 Room Air 06/03/25 23:55 06/03/25 23:55 06/03/25 23:55 06/03/25 23:55 06/03/25 23:55 06/03/25 23:55 Discharge Plan Plan Patient Disposition: HOME (Self Care) Patient condition on transfer: Stable Prescriptions/Referrals Prescriptions/Med Rec: No Action ferrous sulfate 325 mg (65 mg iron) tablet 325 mg PO BID Qty: 60 2RF PNV [id number] 90 mg iron- 1 mg-200 mg capsule 1 cap PO QDAY Referrals: No Primary/Family,Physician [Primary Care Provider] Patient/Caregiver Discharge Instructions Discharge Activity: resume usual activities Print Language: Tajik Activity Restrictions/Additional Instructions: Discharge home with baby. Continue vitamins and iron. Tylenol or ibuprofen for pain. Discussed danger signs and symptoms and ER precautions. Discussed signs symptoms of infection return in 3 weeks Stand Alone Forms: Lashawn Award Info., Patient Portal Info Letter Discharge Order Discharge Orders: Discharge (Routine); Ordered 06/04/25 Ordered By: Kiya Brito Planned Discharge Date 06/04/25
== END 2025-06-04 12:05 | disposition home or self-care (01) | DRG 560 ==
LOC: S4SX 06-03 02:39 → S4NX 06-03 05:13
PROVIDERS: Admitting Provider Advanced Practice Midwife; Visit Provider Advanced Practice Midwife
DX: O70.0 First degree perineal laceration during delivery (principal); Z37.0 Single live birth; Z3A.39 39 weeks gestation of pregnancy
CPT/HCPCS: 36415; 59025; 76805; 76819; 80307; 84112; 85025; 86780; 86850; 86900; 86901; J0290; J2210; J2590; J2795; J3010; J3490; J7120; S0191; A9270